=== PATIENT | male | born 1960 | race Caucasian/White ===

== ENCOUNTER 2024-12-30 17:42 | Emergency (ER) | payer MEDICAID, SELFPAY ==
[2024-12-30 18:32] VITALS: BP 173/104; PULSE 95; RESP 18; TEMP 36.9; O2SAT 94; BMI 36.1
--- NOTE | 2024-12-30 18:41 | XR_ITS ---
Examination: Tibia-Fibula, right , 2 views Technique: Tibia-fibula AP lateral 2 views Date and time of exam: December 30, 2024, 1920 hrs. Indications: Redness swelling and pain involving the lower leg beginning 2 weeks ago. Findings: Edema surrounding the lower leg No fracture Possible periosteal new bone involving the mid anterior tibia on the lateral view Impression: Possible early osteomyelitis mid anterior tibial shaft Recommend MRI right lower leg without contrast follow-up
--- NOTE | 2024-12-30 18:41 | PD.EDRME ---
Rapid Medical Screening Exam RME Arrival date/time: 12/30/24 17:42 64M with history of DM presents to ED with non-healing ulcer on RLE for 1 week. Chief Complaint: Wound/Laceration Vital signs: Vital Signs Temperature 98.4 F 12/30/24 18:32 Pulse Rate 95 12/30/24 18:32 Respiratory Rate 18 12/30/24 18:32 Blood Pressure 173/104 H 12/30/24 18:32 Pulse Oximetry (%) 94 L 12/30/24 18:32 Oxygen Delivery Method Room Air 12/30/24 18:32
[2024-12-30 19:09] LABS: Sed Rate (ESR) 22 mm/hr (0-20)
[2024-12-30 19:11] LABS: Basophils # (Auto) 0.1 Thou/mm3 (0.0-0.2); Basophils % (Auto) 1 % (0-2.5); Eosinophils # (Auto) 0.3 Thou/mm3 (0.0-0.5); Eosinophils % (Auto) 2 % (0-10); Hematocrit 44.5 % (41.0-53.0); Hemoglobin 15.0 g/dL (13.5-16.0); Immature Granulocytes Auto 0.06 Thou/mm3 (0.00-0.00); Lymphocytes # (Auto) 1.1 Thou/mm3 (1.0-4.8); Lymphocytes % (Auto) 7 % (10-50); Mean Corpuscular HGB Conc 33.7 g/dl (31.0-37.0); Mean Corpuscular Hemoglobin 30.5 pg (25.0-35.0); Mean Corpuscular Volume 90 fL (80-100); Monocytes # (Auto) 0.9 Thou/mm3 (0.0-0.8); Monocytes % (Auto) 6 % (0-12); Neutrophils # (Auto) 12.4 Thou/mm3 (1.8-7.7); Neutrophils % (Auto) 84 % (37-80); Nucleated Red Blood Cell # 0.00 Thou/mm3 (0.00-0.00); Nucleated Red Blood Cell % 0 /100 WBC (0); Platelet Count 316 Thou/mm3 (140-440); RDW Standard Deviation 41.6 fL (35.1-43.9); Red Blood Count 4.92 Miln/mm3 (4.50-5.90); White Blood Count 14.9 Thou/mm3 (3.8-10.6)
[2024-12-30 19:24] LABS: Alanine Aminotransferase 31 U/L (10-49); Albumin, Serum 4.3 gm/dL (3.4-4.8); Albumin/Globulin Ratio 1.4 (1.2-2.2); Alkaline Phosphatase 94 U/L (46-116); Anion Gap 8 (7-16); Aspartate Amino Transferase 20 U/L (0-34); BUN/Creatinine Ratio 14 Ratio (12-20); Bilirubin,Total 1.1 mg/dL (0.3-1.2); Blood Urea Nitrogen 11 mg/dL (9-23); C-Reactive Protein 3.7 mg/dL (0.0-0.9); Calcium 10.2 mg/dL (8.3-10.6); Calcium (Corrected) 10.2 mg/dL (8.5-10.1); Carbon Dioxide 29.5 mMol/L (20.0-31.0); Chloride 103 mMol/L (98-107); Creatinine (Component) 0.8 mg/dL (0.6-1.3); Estimated Creatinine Clearance 136.1 mL/min (>60); Globulin 3.0 gm/dL (2.3-3.5); Glucose 225 mg/dL (74-106); Osmolality,Calculated 285 (275-295); Potassium 5.3 mMol/L (3.4-5.1); Sodium 140 mMol/L (136-145); Total Protein 7.3 gm/dL (5.7-8.2); eGFR > 60 See Note
--- NOTE | 2024-12-30 21:38 | PC.NURSE ---
2134 called no answer
--- NOTE | 2024-12-30 22:18 | PD.EDWOUND ---
ED Wound/Laceration-RME/HPI General Chief Complaint: Wound/Laceration Stated Complaint: Right leg wound X 7 days Time Seen by Provider: 12/30/24 19:45 Arrival date/time: 12/30/24 17:42 RME / HPI RME / HPI narrative: 64M with history of DM presents to ED with non-healing ulcer on RLE for 1 week. Patient told me that about 8 days ago he accidentally hit his right lower leg on a hard object resulting in the abrasions. Since then has been having nonhealing wound. Associated with swelling to the leg. And discomfort. Severity moderate. Denies any fever. Patient is ambulatory. Was seen by PCP and was started on doxycycline and Keflex which according to the patient is not really helping. Dressing was applied in the clinic today. He is pending referral to military personnel specialist MD which the patient is going to see next week. Related Data Home Medications ?Medication ?Instructions ?Recorded ?Confirmed metformin 1,000 mg tablet 1,000 mg PO BID #0 tabs 03/08/17 03/30/23 (Glucophage) empagliflozin 10 mg tablet 10 mg PO QDAY 03/30/23 03/30/23 (Jardiance) sitagliptin phosphate 100 mg 100 mg PO DAILY 03/30/23 03/30/23 tablet (Januvia) Previous Rx's ?Medication ?Instructions ?Recorded ipratropium 20 mcg-albuterol 100 1 puff inhalation QID PRN 03/31/23 mcg/actuation mist for inhalation shortness of breath or wheezing #4 grams amoxicillin 875 mg-potassium 1 tab PO BID #20 tabs 12/30/24 clavulanate 125 mg tablet furosemide 20 mg tablet (Lasix) 20 mg PO QAM #7 tabs 12/30/24 furosemide 40 mg tablet (Lasix) 40 mg PO QAM #7 tabs 12/30/24 Allergies Allergy/AdvReac Type Severity Reaction Status Date / Time No Known Allergies Allergy Verified 12/30/24 17:46 Review of Systems Review of Systems Narrative Review of Systems: Review of system reviewed and within normal limits except mentioned in HPI ED Exam Narrative Physical exam: VITAL SIGNS: Reviewed. GENERAL APPEARANCE: Alert and interactive, follows commands, no acute distress, HEAD AND FACE: Non-traumatic. ENT: PERRL, pink conjunctivitis, eyelid no trauma, Mucous membrane moist. NECK: Supple, nontender, no nuchal rigidity. CHEST: No tenderness, no crepitus, no paradoxical movement, no retractions. LUNGS: Clear, well ventilated, symmetric, no rales, no wheezing, no ronchi, no stridor, good breath sounds bilaterally. HEART: Regular rate, regular rhythm, no murmur, no gallops. ABDOMEN: Soft, positive bowel sounds, nondistended, no guarding, nontender, no rebound, no masses, RECTAL: Deferred. GENITAL: Deferred. NEUROLOGICAL: Gross motor function intact sensory function intact, Appropriate for age. MUSCULOSKELETAL: low back nontender, full range of motion. EXTREMITIES: +2 edema right lower extremity with excoriation, + small open wound noted. With erythema., Nontender, full range of motion. Distal neurovascular status intact., Capillary fill less than 2 seconds. SKIN: Color pink, dry, no rash, no lacerations, no abrasions, no contusions. LYMPHATICS: Deferred. Course Quality Measures none Orders Category Date Time Status XR tibia fibula RT 2V Stat Exams 12/30/24 18:41 Completed CBC Stat Lab 12/30/24 18:52 Completed CMP [Comprehensive Metabolic Panel] Stat Lab 12/30/24 18:52 Completed CRP [C-Reactive Protein] Stat Lab 12/30/24 18:52 Completed ESR [Sed Rate (ESR)] Stat Lab 12/30/24 18:52 Completed Amoxicillin/Pot Clav 875 [Augmentin 875] Med 12/30/24 21:55 Discontinued 1 tab PO X1 ONE Furosemide [Lasix] Med 12/30/24 22:32 Once 20 mg PO X1 ONE Vital Signs Vital signs: Vital Signs Temperature 98.4 F 12/30/24 18:32 Pulse Rate 95 12/30/24 18:32 Respiratory Rate 18 12/30/24 18:32 Blood Pressure 173/104 H 12/30/24 18:32 Pulse Oximetry (%) 94 L 12/30/24 18:32 Oxygen Delivery Method Room Air 12/30/24 18:32 Wound / Laceration MDM Narrative MDM Narrative:: 64M with history of DM presents to ED with non-healing ulcer on RLE for 1 week. Patient told me that about 8 days ago he accidentally hit his right lower leg on a hard object resulting in the abrasions. Since then has been having nonhealing wound. Associated with swelling to the leg. And discomfort. Severity moderate. Denies any fever. Patient is ambulatory. Was seen by PCP and was started on doxycycline and Keflex which according to the patient is not really helping. Dressing was applied in the clinic today. He is pending referral to military personnel specialist MD which the patient is going to see next week. Patient CBC showed 14.9 leukocytosis. ESR 22, potassium 5.3 patient glucose was noted to be 225. X-ray of the tibia-fibula showed possible early osteomyelitis of the tibia. Results discussed with the patient patient was advised to follow-up with flow specialist next week for further management of the chronic venous stasis ulcer of the leg. Patient agrees with the plan. Dressing was changed. None Patient data External records reviewed:: None Clinical information provided by:: patient Social determinants that could affect healthcare access:: none Patient has the following chronic illnesses:: Diabetes mellitus How is presenting disease/condition affected by chronic disease/condition?: exacerbated by Evaluation data The following diagnostics were reviewed and interpreted by me:: lab results and radiology exam(s) Lab and/or radiology exams considered but not ordered:: None Interpretation Summary: See results MDM Medications / Prescriptions Medications or Prescriptions considered but not ordered:: None Medication administrations:: Medication Administration History Discontinued Medications Amoxicillin/Clavulanate Potassium (Amoxicillin/Pot Clav 875 Tablet) 1 tab PO X1 ONE Stop: 12/30/24 21:56 Augmentin and Lasix Consultations Consultation(s) initiated? (list below): No Diagnosis Wound Differential Diagnosis: avulsion of skin and other (Venous stasis ulcer, chronic ulcer leg, osteomyelitis tibia) Most likely diagnosis given after review of the tests above:: Chronic leg ulcer, venous stasis ulcer, Admission Indicated Admission indicated?: not indicated Explain why admission is indicated or not indicated:: Stable Admission Request Was there a request for admission?: No Disposition Plan Disposition Plan: Discharge Discharge Attestation Discharge Attestation: The patient was given an opportunity to ask questions and understood the discharge instructions. Discharge instructions specifically effects, indications for sooner follow up or return to the emergency department, and the expected course of current diagnosis. Patient condition: Stable Discharge Plan Plan Patient Disposition: HOME (Self Care) Discharge Disposition comment: Stable Prescriptions/Referrals Prescriptions/Med Rec: New amoxicillin-pot clavulanate 875-125 mg tablet 1 tab PO BID Qty: 20 0RF furosemide [Lasix] 40 mg tablet 40 mg PO QAM Qty: 7 0RF furosemide [Lasix] 20 mg tablet 20 mg PO QAM Qty: 7 0RF No Action metformin [Glucophage] 1,000 MG tablet 1,000 mg PO BID Qty: 0 Januvia 100 mg tablet 100 mg PO DAILY Jardiance 10 mg Tablet 10 mg PO QDAY ipratropium-albuterol 20-100 mcg/actuation mist 1 puff inhalation QID PRN (Reason: shortness of breath or wheezing) Qty: 4 0RF Rx Instructions: space evenly during waking hours Referrals: No Primary/Family,Physician [Primary Care Provider] - In 1 week Problem List Clinical Impression: Chronic stasis dermatitis, Chronic wound of extremity Patient/Caregiver Discharge Instructions Discharge Activity: activity as tolerated Education Materials: ED Venous Leg Ulcer Additional Instructions: Thank you for the opportunity for serving you today. You are stable for discharged . You are advised to: Follow-up with your PCP in 1 to 2 days Return to ED for worsening of symptoms worsening wound, fever, worsening swelling Increase oral fluids Take medication as prescribed Stop taking your Keflex. Continue taking your doxycycline Elevate your leg as needed Follow-up with your wound care referral for wound care MD specialist X-ray of your leg showed possible early osteomyelitis of the anterior tibial shaft. Print Language: Slovenian Stand Alone Forms: [facility] Award Info., Patient Portal Info Letter PA/DESIGN ENGINEERING SPECIALIST Supervising Physician PA/DESIGN ENGINEERING SPECIALIST Supervising Physician: MD Patricia
[2024-12-30 23:16] VITALS: BP 170/103; PULSE 96
[2024-12-30] MEDS: AMOXICILLIN/POT CLAV 875 TABLET 1 TAB PO (23:16)
== END 2024-12-30 23:20 | disposition home or self-care (01) ==
PROVIDERS: Physician Assistant; Emergency Provider Emergency Medicine
DX: I87.2 Venous insufficiency (chronic) (peripheral) (principal); L97.819 Non-pressure chronic ulcer of other part of right lower leg with unspecified severity; S81.811D Laceration without foreign body, right lower leg, subsequent encounter; W22.8XXD Striking against or struck by other objects, subsequent encounter
CPT/HCPCS: 36415; 73590; 80053; 85025; 85652; 86140; 99284; A9270

== ENCOUNTER 2025-01-05 13:19 | Emergency (ER) | payer MEDICAID, SELFPAY ==
--- NOTE | 2025-01-05 | XR_ITS ---
Examination: MRI right lower leg, without contrast Date and time of exam: January 05, 2025, 1539 hours INDICATIONS: Redness swelling discoloration lower leg beginning December 2024 Technique: Multiple axial sagittal and coronal images of the right lower leg have been obtained with the Siemens high-resolution 1.5 [place] MRI scanner. Images obtained include T2-weighted fat-suppressed sagittal sections, TR 3500, TE 46, T2 weighted coronal fat suppressed images, TR 3050, TE 84, T2-weighted transverse fat suppressed images, TR 3260, TE 63, proton density transverse images, TR 4720 TE 46, and T1 weighted coronal images, TR 560, TE 13. Findings: Continual patient motion severely degrades scan image quality Diffuse edema in the subcutaneous fatty tissue No cortical bone obstruction involving the tibia or fibula No soft tissue abscess There is increased signal in the extensor digitorum longus muscle which may represent hemorrhage IMPRESSION: Suspicious for hemorrhage in the extensor digitorum longus muscle, consider shorter CT scan tibia-fibula post contrast follow-up as patient motion severely degrades scan image quality
[2025-01-05 13:32] VITALS: BP 154/81; PULSE 87; RESP 20; TEMP 36.9; O2SAT 98
--- NOTE | 2025-01-05 13:44 | PD.EDRME ---
Rapid Medical Screening Exam RME Arrival date/time: 01/05/25 13:19 64-year-old male presents to the emergency room today for concerns for possible infection/osteomyelitis to right lower extremity Chief Complaint: General Adult/Misc Complain Time Seen by Provider: 01/05/25 13:27 Vital signs: Vital Signs Temperature 98.5 F 01/05/25 13:32 Pulse Rate 87 01/05/25 13:32 Respiratory Rate 20 01/05/25 13:32 Blood Pressure 154/81 H 01/05/25 13:32 Pulse Oximetry (%) 98 01/05/25 13:32 Oxygen Delivery Method Room Air 01/05/25 13:32
[2025-01-05 14:42] LABS: Basophils # (Auto) 0.1 Thou/mm3 (0.0-0.2); Basophils % (Auto) 1 % (0-2.5); Eosinophils # (Auto) 0.8 Thou/mm3 (0.0-0.5); Eosinophils % (Auto) 6 % (0-10); Hematocrit 43.7 % (41.0-53.0); Hemoglobin 14.8 g/dL (13.5-16.0); Immature Granulocytes Auto 0.04 Thou/mm3 (0.00-0.00); Lymphocytes # (Auto) 1.5 Thou/mm3 (1.0-4.8); Lymphocytes % (Auto) 12 % (10-50); Mean Corpuscular HGB Conc 33.9 g/dl (31.0-37.0); Mean Corpuscular Hemoglobin 30.3 pg (25.0-35.0); Mean Corpuscular Volume 90 fL (80-100); Monocytes # (Auto) 0.9 Thou/mm3 (0.0-0.8); Monocytes % (Auto) 7 % (0-12); Neutrophils # (Auto) 9.8 Thou/mm3 (1.8-7.7); Neutrophils % (Auto) 75 % (37-80); Nucleated Red Blood Cell # 0.00 Thou/mm3 (0.00-0.00); Nucleated Red Blood Cell % 0 /100 WBC (0); Platelet Count 311 Thou/mm3 (140-440); RDW Standard Deviation 41.0 fL (35.1-43.9); Red Blood Count 4.88 Miln/mm3 (4.50-5.90); White Blood Count 13.1 Thou/mm3 (3.8-10.6)
[2025-01-05 14:42] LABS: Lactate (Lactic Acid) 1.3 mMol/L (0.4-2.0)
[2025-01-05 15:10] LABS: Alanine Aminotransferase 28 U/L (10-49); Albumin, Serum 4.1 gm/dL (3.4-4.8); Albumin/Globulin Ratio 1.4 (1.2-2.2); Alkaline Phosphatase 97 U/L (46-116); Anion Gap 7 (7-16); Aspartate Amino Transferase 15 U/L (0-34); BUN/Creatinine Ratio 13 Ratio (12-20); Bilirubin,Total 0.8 mg/dL (0.3-1.2); Blood Urea Nitrogen 12 mg/dL (9-23); C-Reactive Protein 7.0 mg/dL (0.0-0.9); Calcium 9.3 mg/dL (8.3-10.6); Calcium (Corrected) 9.3 mg/dL (8.5-10.1); Carbon Dioxide 28.9 mMol/L (20.0-31.0); Chloride 101 mMol/L (98-107); Creatinine (Component) 0.9 mg/dL (0.6-1.3); Globulin 3.0 gm/dL (2.3-3.5); Glucose 263 mg/dL (74-106); Osmolality,Calculated 282 (275-295); Potassium 4.3 mMol/L (3.4-5.1); Procalcitonin 0.19 ng/ml (0.0-0.49); Sodium 137 mMol/L (136-145); Total Protein 7.1 gm/dL (5.7-8.2); eGFR > 60 See Note
[2025-01-05 15:12] LABS: Sed Rate (ESR) 40 mm/hr (0-20)
--- NOTE | 2025-01-05 18:06 | PD.EDADULT ---
ED General RME/HPI General Chief complaint: General Adult/Misc Complain Stated complaint: SENT BY MD FOR MRI ON R LEG Time Seen by Provider: 01/05/25 13:27 Arrival date/time: 01/05/25 13:19 RME / HPI RME / HPI narrative: 01/05/25 13:19 64-year-old with past medical history of hypertension, chronic lower extremity venous stasis, polysubstance abuse, insulin-independent type 2 diabetes mellitus who comes in for an evaluation of right lower extremity swelling. He reports that he has had this for a long time and he was told by his primary care doctor to come get evaluated in the emergency room. He says that he dresses his right lower extremity on his own and has had this for a long time. He says that if his leg was infected, he would not want to get any sort of amputation at this time. Denies any fever, chills or chest pain at this time. He does endorse some drainage at this time however no pain in his lower extremity. He says that he had his left eye removed after an injury while working. He has no other complaints at this time. Related Data Home Medications ?Medication ?Instructions ?Recorded ?Confirmed metformin 1,000 mg tablet 1,000 mg PO BID #0 tabs 03/08/17 03/30/23 (Glucophage) empagliflozin 10 mg tablet 10 mg PO QDAY 03/30/23 03/30/23 (Jardiance) sitagliptin phosphate 100 mg 100 mg PO DAILY 03/30/23 03/30/23 tablet (Januvia) Previous Rx's ?Medication ?Instructions ?Recorded ipratropium 20 mcg-albuterol 100 1 puff inhalation QID PRN 03/31/23 mcg/actuation mist for inhalation shortness of breath or wheezing #4 grams amoxicillin 875 mg-potassium 1 tab PO BID #20 tabs 12/30/24 clavulanate 125 mg tablet furosemide 20 mg tablet (Lasix) 20 mg PO QAM #7 tabs 12/30/24 furosemide 40 mg tablet (Lasix) 40 mg PO QAM #7 tabs 12/30/24 Allergies Allergy/AdvReac Type Severity Reaction Status Date / Time No Known Allergies Allergy Verified 01/05/25 13:21 Review of Systems Review of Systems Narrative Review of Systems: Constitutional: No fever, chills, fatigue, weakness, weight loss HEENT: No eye pain, vision loss, ear pain, hearing loss, dysphagia, Cardiovascular: No chest pain, palpitations, edema, pain with walking Respiratory: No cough, shortness of breath, wheezing GI: No NVD, abdominal pain, constipation, blood in stool, loss of appetite, heartburn Extremities: No presence of pitting edema, endorses drainage of RLE MSK: No back pain, joint pain, joint swelling Neuro: No dizziness, numbness, weakness, headaches, seizures, tremors Psych: No anxiety, depression ED Exam Narrative Physical exam: General: AAOx3, NAD, plesant male HEENT: Moist mucous membranes, conjunctiva clear, EOMI, missing L eye Cardiovascular: S1, S2, radial pulses +2 bilat, RRR Pulmonary: CTAB bilat no cough, no wheezing GI: No tenderness to light or deep palpitation, no guarding, rigidity, rebound tenderness or distension Extremities: Right lower extremity shows diffuse edema, erythema, active drainage, however no visual open ulcer visualized, subcutaneous edema present, not tender to touch, not warm to touch, left lower extremity exhibits venous stasis, difficulty appreciating lower extremity peripheral pulses bilat Neuro: AAOx3, no focal motor or sensory deficits in the UE or LE bilat Psych: Good judgement, thought and behavior Course Quality Measures none Orders Category Date Time Status CT Screening NOW Care 01/05/25 18:25 Active Insert IV NOW Care 01/05/25 18:26 Active MRI Screening NOW Care 01/05/25 13:43 Active Wound Care [Wound Care] PRN Care 01/05/25 18:[address] LE RT wo/w con Stat Exams 01/05/25 18:24 Ordered MR lower leg RT wo con Stat Exams 01/05/25 Completed Blood Culture (Lab) Stat Lab 01/05/25 14:30 Received CBC Stat Lab 01/05/25 14:25 Completed CRP [C-Reactive Protein] Stat Lab 01/05/25 14:25 Completed Comprehensive Metabolic Panel Stat Lab 01/05/25 14:25 Completed ESR [Sed Rate (ESR)] Stat Lab 01/05/25 14:25 Completed Lactate (Lactic Acid) Stat Lab 01/05/25 14:30 Completed MRSA Nasal Screen Stat Lab 01/05/25 20:43 Ordered Procalcitonin Stat Lab 01/05/25 14:25 Completed Piper/Tazo 3.375 gm Premix [Zosyn] Med 01/05/25 20:42 Discontinued 3.375 gm in 50 ml IV X1 Vancomycin Pharmacy to Dose Med 01/05/25 20:45 Pending 1 each IV QDAY Vital Signs Vital signs: Vital Signs Temperature 98.5 F 01/05/25 13:32 Pulse Rate 87 01/05/25 13:32 Respiratory Rate 20 01/05/25 13:32 Blood Pressure 154/81 H 01/05/25 13:32 Pulse Oximetry (%) 98 01/05/25 13:32 Oxygen Delivery Method Room Air 01/05/25 13:32 Discharge Plan Plan Patient Disposition: Elopement Prescriptions/Referrals Prescriptions/Med Rec: No Action metformin [Glucophage] 1,000 MG tablet 1,000 mg PO BID Qty: 0 Januvia 100 mg tablet 100 mg PO DAILY Jardiance 10 mg Tablet 10 mg PO QDAY ipratropium-albuterol 20-100 mcg/actuation mist 1 puff inhalation QID PRN (Reason: shortness of breath or wheezing) Qty: 4 0RF Rx Instructions: space evenly during waking hours amoxicillin-pot clavulanate 875-125 mg tablet 1 tab PO BID Qty: 20 0RF furosemide [Lasix] 40 mg tablet 40 mg PO QAM Qty: 7 0RF furosemide [Lasix] 20 mg tablet 20 mg PO QAM Qty: 7 0RF Referrals: Truong Guajardo MD [Primary Care Provider, Family Practice] - In 1 week Problem List Clinical Impression: At risk for elopement from emergency department Patient/Caregiver Discharge Instructions Print Language: Sami Attestation Attestation I, Dr. Quinonez, have reviewed the history, exam, and assessment of the patient. I have evaluated the patient independently and agree with the plan of care documented by the resident Dr. Dang. All diagnostic studies were reviewed and discussed. I confirm the diagnosis as documented by the resident. I was present during the Medical Decision Making for this patient. The patient?s plan of care was created between myself and the resident and consistent with our discussion of the patient?s case. MDM Narrative MDM hospital course (for use when minimal MDM required): 183: Due to MRI that was done for patient earlier was limited in images, will order CT RLE postcontrast for further evaluation of edema and possible hemorrhage, will insert IV. Labs reviewed, no lactic acidosis or Pro-Joe elevation, however ESR 40, CRP 7. Medication Administration(s) Medication Administration History Pharmacy Consult (Vancomycin Pharmacy To Dose 1 Each Each) 1 each IV QDAY RALPH Stop: 02/04/25 20:44 Discontinued Medications Piperacillin/Tazobactam/Dextrose (Zosyn) 3.375 gm in 50 mls @ 100 mls/hr IV X1 ONE; Protocol Stop: 01/05/25 21:11
--- NOTE | 2025-01-05 21:57 | PC.NURSE ---
Pt no answer @ 2055, 2114, 2155. Attempted to also call pt's listed cell number with no answer.
== END 2025-01-05 22:50 | disposition left against medical advice (07) ==
PROVIDERS: Nurse Practitioner Primary Care; Emergency Provider Emergency Medicine; PCP Family Medicine
DX: R22.41 Localized swelling, mass and lump, right lower limb (principal); I10 Essential (primary) hypertension; E11.9 Type 2 diabetes mellitus without complications; Z79.4 Long term (current) use of insulin; I87.8 Other specified disorders of veins; Z53.29 Procedure and treatment not carried out because of patient's decision for other reasons
CPT/HCPCS: 36415; 73718; 80053; 83605; 84145; 85025; 85652; 86140; 87040; 87081; 99284

== ENCOUNTER 2025-01-06 06:29 | Emergency (ER) | payer MEDICAID, SELFPAY ==
[2025-01-06 06:30] VITALS: BMI 37.2
[2025-01-06 06:34] VITALS: BP 166/94; PULSE 91; RESP 20; TEMP 37.2; O2SAT 95
--- NOTE | 2025-01-06 06:42 | XR_ITS ---
Examination: CT right lower leg with intravenous contrast CT right lower leg without intravenous contrast 2-D reconstructions Date and time of exam:January 06, 2025, 0842 hours INDICATIONS: Nonhealing ulcer and drainage tenderness in the right lower leg today CTDI:vol (mGy) 15.12 DLP: (mGycm) 615 Technique: Multiple axial sections of the right lower leg have been obtained. Examination performed pre and post intravenous ministration 60 cc [id number] 2-D sagittal coronal images obtained. Low dose protocols were performed. One or more of the following dose reduction techniques were used; automated exposure control, adjustment of the mA and/or KV according to patient size, use of iterative reconstruction technique. Findings: Moderate knee effusion Diffuse edema in the subcutaneous tissues surrounding the lower leg, most prominent anterior to the tibial shaft No discrete fluid-filled abscess No cortical bone destruction involving distal femur tibia or fibula IMPRESSION: Diffuse cellulitis/edema in the subcutaneous fatty tissue surrounding the lower leg No soft tissue abscess Negative for osteomyelitis
--- NOTE | 2025-01-06 06:49 | PD.EDRME ---
Rapid Medical Screening Exam E Arrival date/time: 01/06/25 06:29 64-year-old with past medical history of hypertension, chronic lower extremity venous stasis, polysubstance abuse, insulin-independent type 2 diabetes mellitus presents to the emergency room with a chief complaint of an ulcer, drainage, tenderness from his right lower leg. Patient was seen here yesterday but eloped. I have greeted and performed a focused initial assessment of this patient. A comprehensive ED assessment and evaluation of the patient, analysis of all test results, and completion of the medical decision making process will be conducted by additional ED providers. Chief Complaint: Extremity Injury, Lower Time Seen by Provider: 01/06/25 06:40 Vital signs: Vital Signs Temperature 98.9 F 01/06/25 06:34 Pulse Rate 91 01/06/25 06:34 Respiratory Rate 20 01/06/25 06:34 Blood Pressure 166/94 H 01/06/25 06:34 Pulse Oximetry (%) 95 01/06/25 06:34 Oxygen Delivery Method Room Air 01/06/25 06:34 Vital signs reviewed by provider: Yes
[2025-01-06 07:26] LABS: Lactate (Lactic Acid) 1.6 mMol/L (0.4-2.0)
[2025-01-06 07:37] LABS: Basophils # (Auto) 0.1 Thou/mm3 (0.0-0.2); Basophils % (Auto) 1 % (0-2.5); Eosinophils # (Auto) 0.4 Thou/mm3 (0.0-0.5); Eosinophils % (Auto) 4 % (0-10); Hematocrit 44.7 % (41.0-53.0); Hemoglobin 15.1 g/dL (13.5-16.0); Immature Granulocytes Auto 0.05 Thou/mm3 (0.00-0.00); Lymphocytes # (Auto) 1.2 Thou/mm3 (1.0-4.8); Lymphocytes % (Auto) 12 % (10-50); Mean Corpuscular HGB Conc 33.8 g/dl (31.0-37.0); Mean Corpuscular Hemoglobin 30.4 pg (25.0-35.0); Mean Corpuscular Volume 90 fL (80-100); Monocytes # (Auto) 0.7 Thou/mm3 (0.0-0.8); Monocytes % (Auto) 7 % (0-12); Neutrophils # (Auto) 7.9 Thou/mm3 (1.8-7.7); Neutrophils % (Auto) 76 % (37-80); Nucleated Red Blood Cell # 0.00 Thou/mm3 (0.00-0.00); Nucleated Red Blood Cell % 0 /100 WBC (0); Platelet Count 310 Thou/mm3 (140-440); RDW Standard Deviation 41.4 fL (35.1-43.9); Red Blood Count 4.96 Miln/mm3 (4.50-5.90); White Blood Count 10.3 Thou/mm3 (3.8-10.6)
--- NOTE | 2025-01-06 07:49 | EDNOTE_ITS ---
ED General RME/HPI General Chief complaint: Extremity Injury, Lower Stated complaint: RIGHT LEG ULCER Time Seen by Provider: 01/06/25 06:40 Arrival date/time: 01/06/25 06:29 RME / HPI RME / HPI narrative: 01/06/25 06:29 64-year-old with past medical history of hypertension, chronic lower extremity venous stasis, polysubstance abuse, insulin-independent type 2 diabetes mellitus presents to the emergency room with a chief complaint of an ulcer, drainage, tenderness from his right lower leg. Patient was seen here yesterday but eloped. I have greeted and performed a focused initial assessment of this patient. A comprehensive ED assessment and evaluation of the patient, analysis of all test results, and completion of the medical decision making process will be conducted by additional ED providers. ED EVALUATION 0735h: 64-year-old male here for evaluation of right lower extremity swelling. States that he was seen here in the past couple weeks for the swelling, given prescription for doxycycline which he finished a 10-day course of a few days ago. Also is currently on Augmentin for same. Has had weeping to the right lower extremity though this has been decreasing the last few days. The swelling is noted to improve when he elevates his leg. Notes that he is afraid of losing the leg due to a possible evidence of infection noted on an x-ray recently. Had been here yesterday for an MRI for further evaluation though imaging was somewhat limited due to patient movement. A CT postcontrast of the leg have been recommended which patient did not end up staying for. He is back this morning to finish the workup. Denies any fever or other acute symptoms at this time. Notes that he has history of diabetes, hypertension, COPD for which he is on a number of medications that he has not been taking the past few months as he has not been able to go see his doctor for refills. Related Data Previous Rx's ?Medication ?Instructions ?Recorded ipratropium 20 mcg-albuterol 100 1 puff inhalation QID PRN 03/31/23 mcg/actuation mist for inhalation shortness of breath or wheezing #4 grams amoxicillin 875 mg-potassium 1 tab PO BID #20 tabs clavulanate 125 mg tablet empagliflozin 10 mg tablet 10 mg PO QDAY #30 tabs 10/0 06/28 (Jardiance) furosemide 20 mg tablet (Lasix) 20 mg PO QAM #30 tabs 01/06/25 lisinopril 20 mg tablet 20 mg PO QDAY #30 tabs 01/06 metformin 1,000 mg tablet 1,000 mg PO BID #60 tabs 06/28 sitagliptin phosphate 100 mg 100 mg PO DAILY #30 tabs 01/06/25 tablet (Januvia) Allergies Allergy/AdvReac Type Severity Reaction Status Date / Time No Known Allergies Allergy Verified 01/06/25 06:31 Review of Systems Review of Systems Systems Reviewed: All systems reviewed, normal except as documented Past Medical History Past Medical History Comments PMH COMMENT: COPD, diabetes, hypertension, chronic peripheral vascular disease lower extremities ED Exam Narrative Physical exam: Constitutional: Awake, alert, nontoxic, obese, does not appear in acute distress at this time. HEENT: Normocephalic, atraumatic, extraocular movements intact. Neck: Supple CV: Regular rate and rhythm, no murmurs/rubs/gallops Lungs: Mild generalized expiratory wheeze. No respiratory distress noted. Abd: Soft, NT, ND, large abdominal pannus noted. Extremities: Chronic PVD changes noted to skin of bilateral lower extremities. The right lower extremity is noted to have mildly increased heat to palpation, no pain to superficial palpation of right lower extremity. Dusky erythema present from several inches below the right knee down to her foot. Decreased pulse noted to right lower extremity. Some superficial skin breakdown noted but otherwise no ulcerations noted to right lower extremity calf or foot. Neuro: AAOx3, no acute neuro deficit noted. Skin: Abnormalities as above. Course Course Course Narrative: 0740h: 64-year-old male coming in for reevaluation of right lower extremity swelling and weeping that per patient has actually been improving over the last few days. Repeat labs and a CT that was pending yesterday was reordered today. Possible discharge home pending workup results. Also refilled patient prescriptions that he has not had and will give dose of home meds here. 1210h: Patient is feeling well. Discussed results of CT lower extremity with patient as well as labs which are noted to have some improvement compared with yesterday. Overall it appears that patient has had some improvement over the past few days and symptoms while on current antibiotics. Would continue course of the antibiotics. No evidence of osteomyelitis at this time. No indication for further emergent workup inpatient. Have advised on taking his home medications as prescribed and following up with his PCP closely outpatient. Given refills of medications that he is missing. Also discussed lifestyle modifications for better health. Stable for discharge. Quality Measures none Orders Category Date Time Status CT Screening NOW Care 01/06/25 06:[address] Screening X1 Care 01/06/25 06:42 Active Insert IV NOW Care 01/06/25 06:[address] lower leg RT wo/w con Stat Exams 01/06/25 06:42 Completed Blood Culture (Lab) Stat Lab 01/06/25 07:06 Received CBC [CBC] Stat Lab 01/06/25 07:12 Completed CMP [Comprehensive Metabolic Panel] Stat Lab 01/06/25 07:12 Completed CRP [C-Reactive Protein] Stat Lab 01/06/25 07:12 Completed ESR [Sed Rate (ESR)] Stat Lab 01/06/25 07:12 Completed Lactate (Lactic Acid) Stat Lab 01/06/25 07:12 Completed Procalcitonin Stat Lab 01/06/25 07:12 Completed Furosemide [Lasix] Med 01/06/25 07:42 Discontinued 20 mg PO X1 ONE empagliflozin [Jardiance] Med 01/06/25 07:42 Discontinued 10 mg PO NOW ONE metFORMIN [Glucophage] Med 01/06/25 07:42 Discontinued 1,000 mg PO X1 ONE sitaGLIPtin PHOSPHATE [Januvia] Med 01/06/25 07:42 Discontinued 100 mg PO X1 ONE Referral [employer] NOW 01/06/25 08:35 Active Vital Signs Vital signs: Vital Signs Temperature 98.9 F 01/06/25 06:34 Pulse Rate 91 01/06/25 06:34 Respiratory Rate 20 01/06/25 06:34 Blood Pressure 166/94 H 01/06/25 06:34 Pulse Oximetry (%) 95 01/06/25 06:34 Oxygen Delivery Method Room Air 01/06/25 06:34 Critical Care Time Critical Care Time Critical Care Time: No Discharge Plan Plan Patient Disposition: HOME (Self Care) Patient condition on transfer: Stable Prescriptions/Referrals Prescriptions/Med Rec: New metformin 1,000 mg tablet 1,000 mg PO BID Qty: 60 0RF lisinopril 20 mg tablet 20 mg PO QDAY Qty: 30 0RF Continued furosemide [Lasix] 20 mg tablet 20 mg PO QAM Qty: 30 0RF Januvia 100 mg tablet 100 mg PO DAILY Qty: 30 0RF Jardiance 10 mg Tablet 10 mg PO QDAY Qty: 30 0RF Discontinued metformin [Glucophage] 1,000 MG tablet 1,000 mg PO BID Qty: 0 furosemide [Lasix] 40 mg tablet 40 mg PO QAM Qty: 7 0RF No Action ipratropium-albuterol 20-100 mcg/actuation mist 1 puff inhalation QID PRN (Reason: shortness of breath or wheezing) Qty: 4 0RF Rx Instructions: space evenly during waking hours amoxicillin-pot clavulanate 875-125 mg tablet 1 tab PO BID Qty: 20 0RF Referrals: Angelica Casanova MD [Primary Care Provider] - In 1 week Problem List Clinical Impression: Cellulitis, History of diabetes mellitus, Peripheral vascular disease Patient/Caregiver Discharge Instructions Education Materials: Low-Salt Choices, Discharge Instructions for Cellulitis, Diabetes PAD, Eating Heart-Healthy Foods Additional Instructions: Finish your course of oral antibiotics. Take your medications for diabetes and high blood pressure as prescribed. Follow-up closely with your primary doctor. Change your wound dressings daily, cleaning the wound well at each dressing change. Some general health principles that can help you are the [employer] principles: Nutrition (eat a plant-based diet, avoiding meats in general, avoiding highly processed foods) Exercise (Daily exercise/walks as tolerated) Water (Drink adequate fresh water to maintain hydration, concentrating on water rather than on soda, coffee, tea, juice, etc for hydration) [place] (Spend time - 15-20 minutes or so with skin exposed in the [place] and late evening sun for Vitamin D health benefits) [place] (Avoid alcohol, illicit drugs, caffeinated beverages, smoking, etc) Air (Deep breathing exercises in the early mornings in fresh air) Rest (Adequate rest at night, going to bed a few hours before midnight and avoiding all screens/television/loud music in the time right before going to bed, also avoiding heavy meals just prior to going to bed) Trust in God (Spend time daily in Bible study and prayer - health benefits in contemplation of God's true character) Additional resources that can benefit: www.[employer], look under resources and seminars. Nutrition website: www.[employer].org - look under 'food'. Print Language: Upper Sorbian Stand Alone Forms: [employer] Award Info., Patient Portal Info Letter [facility] Medical Records reviewed [facility] Meds/Rx considered, not ordered None Labs/Rad/Tests considered, not ordered None Chronic Illness/Social Conditions which may negatively complicate care or outcome(s)-explain: None or not applicable EKG EKG not done Labs Labs: interpreted by me Imaging Imaging Interpretation(s): Ordering Physician: Steven Snowden Date of Service: 01/06/25 Procedure(s): CT lower leg RT wo/w con Accession Number(s): [id number] cc: Steven Snowden; Je Mayorga MD; Angelica Casanova MD~ Examination: CT right lower leg with intravenous contrast CT right lower leg without intravenous contrast 2-D reconstructions Date and time of exam:January 06, 2025, 0842 hours INDICATIONS: Nonhealing ulcer and drainage tenderness in the right lower leg today CTDI:vol (mGy) 15.12 DLP: (mGycm) 615 Technique: Multiple axial sections of the right lower leg have been obtained. Examination performed pre and post intravenous ministration 60 cc [id number] 2-D sagittal coronal images obtained. Low dose protocols were performed. One or more of the following dose reduction techniques were used; automated exposure control, adjustment of the mA and/or KV according to patient size, use of iterative reconstruction technique. Findings: Moderate knee effusion Diffuse edema in the subcutaneous tissues surrounding the lower leg, most prominent anterior to the tibial shaft No discrete fluid-filled abscess No cortical bone destruction involving distal femur tibia or fibula IMPRESSION: Diffuse cellulitis/edema in the subcutaneous fatty tissue surrounding the lower leg No soft tissue abscess Negative for osteomyelitis Dictated By: Je Mayorga MD Signed By: <Electronically signed by Je Mayorga MD in [place]> 01/06/25 0946 Medication Administration(s) Medication Administration History Discontinued Medications Furosemide (Furosemide 20 Mg Tablet) 20 mg PO X1 ONE Stop: 01/06/25 07:43 Last Admin: 01/06/25 09:03 Dose: 20 mg Documented By: CS Metformin HCl (Metformin 500 Mg Tablet) 1,000 mg PO X1 ONE Stop: 01/06/25 07:43 Last Admin: 01/06/25 09:04 Dose: Not Given Documented By: CS Non-Admin Reason: Contraindicated Comments: Pt had CT with contrast this AM Non-Formulary Medication (Empagliflozin [Jardiance]) 10 mg PO NOW ONE Stop: 01/06/25 07:43 Last Admin: 01/06/25 10:16 Dose: Not Given Documented By: CS Non-Admin Reason: Medication Not Available Sitagliptin Phosphate (Sitagliptin Phosphate 50 Mg Tablet) 100 mg PO X1 ONE Stop: 01/06/25 07:43 Last Admin: 01/06/25 09:02 Dose: 100 mg Documented By: CS See above Diagnosis Diagnoses ruled out and/or further discussions: chronic peripheral vascular disease mild cellulitis hx of diabetes hx of hypertension
[2025-01-06 08:03] LABS: Alanine Aminotransferase 31 U/L (10-49); Albumin, Serum 4.2 gm/dL (3.4-4.8); Albumin/Globulin Ratio 1.4 (1.2-2.2); Alkaline Phosphatase 97 U/L (46-116); Anion Gap 6 (7-16); Aspartate Amino Transferase 18 U/L (0-34); BUN/Creatinine Ratio 16 Ratio (12-20); Bilirubin,Total 0.7 mg/dL (0.3-1.2); Blood Urea Nitrogen 14 mg/dL (9-23); C-Reactive Protein 5.4 mg/dL (0.0-0.9); Calcium 9.4 mg/dL (8.3-10.6); Calcium (Corrected) 9.4 mg/dL (8.5-10.1); Carbon Dioxide 29.7 mMol/L (20.0-31.0); Chloride 101 mMol/L (98-107); Creatinine (Component) 0.9 mg/dL (0.6-1.3); Estimated Creatinine Clearance 122.7 mL/min (>60); Globulin 3.1 gm/dL (2.3-3.5); Glucose 258 mg/dL (74-106); Osmolality,Calculated 283 (275-295); Potassium 4.0 mMol/L (3.4-5.1); Procalcitonin 0.19 ng/ml (0.0-0.49); Sodium 137 mMol/L (136-145); Total Protein 7.3 gm/dL (5.7-8.2); eGFR > 60 See Note
[2025-01-06 08:30] VITALS: BP 154/95; PULSE 88; RESP 18; TEMP 37.2; O2SAT 95
[2025-01-06 09:03] VITALS: BP 156/97; PULSE 79
[2025-01-06 10:36] LABS: Sed Rate (ESR) 45 mm/hr (0-20)
[2025-01-06 11:37] VITALS: BP 148/109; PULSE 96; RESP 16; TEMP 37.1; O2SAT 98
== END 2025-01-06 13:00 | disposition home or self-care (01) ==
PROVIDERS: Nurse Practitioner Family; Emergency Provider Family Medicine; PCP Family Medicine
DX: L97.919 Non-pressure chronic ulcer of unspecified part of right lower leg with unspecified severity (principal); L03.115 Cellulitis of right lower limb
CPT/HCPCS: 36415; 73702; 80053; 83605; 84145; 85025; 85652; 86140; 87040; 99284; A4649; Q9967; A9270

== ENCOUNTER → 2025-02-09 | Outpatient (CLI) | payer MEDICAID, SELFPAY | END | disposition home or self-care (01) | PROVIDERS: PCP Family Medicine; Referring Provider Family Medicine; Visit Provider Student in an Organized Health Care Education/Training Program | DX: I87.311 Chronic venous hypertension (idiopathic) with ulcer of right lower extremity (principal); E11.621 Type 2 diabetes mellitus with foot ulcer; L97.512 Non-pressure chronic ulcer of other part of right foot with fat layer exposed; L97.815 Non-pressure chronic ulcer of other part of right lower leg with muscle involvement without evidence of necrosis; L03.115 Cellulitis of right lower limb; F17.200 Nicotine dependence, unspecified, uncomplicated; J44.9 Chronic obstructive pulmonary disease, unspecified; K21.9 Gastro-esophageal reflux disease without esophagitis; I10 Essential (primary) hypertension; Z90.01 Acquired absence of eye; R60.0 Localized edema; M10.9 Gout, unspecified | CPT/HCPCS: 29581; 99213; A9270; G0463 ==

== ENCOUNTER → 2025-02-13 | Outpatient (CLI) | payer MEDICAID, SELFPAY | END | disposition home or self-care (01) | LOC: SWHD 15:05 | PROVIDERS: PCP Physician Assistant Medical; Referring Provider Physician Assistant Medical; Visit Provider Student in an Organized Health Care Education/Training Program | DX: I87.311 Chronic venous hypertension (idiopathic) with ulcer of right lower extremity (principal); E11.621 Type 2 diabetes mellitus with foot ulcer; L97.512 Non-pressure chronic ulcer of other part of right foot with fat layer exposed; L97.815 Non-pressure chronic ulcer of other part of right lower leg with muscle involvement without evidence of necrosis; L03.115 Cellulitis of right lower limb; F17.200 Nicotine dependence, unspecified, uncomplicated; J44.9 Chronic obstructive pulmonary disease, unspecified; K21.9 Gastro-esophageal reflux disease without esophagitis; I10 Essential (primary) hypertension; Z90.01 Acquired absence of eye; R60.0 Localized edema | CPT/HCPCS: 29581 ==

== ENCOUNTER → 2025-02-16 | Outpatient (CLI) | payer MEDICAID, SELFPAY | END | disposition home or self-care (01) | LOC: SWHD 14:49 | PROVIDERS: PCP Physician Assistant Medical; Referring Provider Physician Assistant Medical; Visit Provider Student in an Organized Health Care Education/Training Program | DX: I87.311 Chronic venous hypertension (idiopathic) with ulcer of right lower extremity (principal); E11.621 Type 2 diabetes mellitus with foot ulcer; L97.512 Non-pressure chronic ulcer of other part of right foot with fat layer exposed; L97.815 Non-pressure chronic ulcer of other part of right lower leg with muscle involvement without evidence of necrosis; L03.115 Cellulitis of right lower limb; F17.200 Nicotine dependence, unspecified, uncomplicated; J44.9 Chronic obstructive pulmonary disease, unspecified; K21.9 Gastro-esophageal reflux disease without esophagitis; I10 Essential (primary) hypertension; Z90.01 Acquired absence of eye; R60.0 Localized edema | CPT/HCPCS: 29581; A9270 ==

== ENCOUNTER → 2025-02-23 | Outpatient (CLI) | payer MEDICAID, SELFPAY | END | disposition home or self-care (01) | LOC: SWHD 14:25 | PROVIDERS: PCP Physician Assistant Medical; Referring Provider Physician Assistant Medical; Visit Provider Student in an Organized Health Care Education/Training Program | DX: I87.311 Chronic venous hypertension (idiopathic) with ulcer of right lower extremity (principal); E11.621 Type 2 diabetes mellitus with foot ulcer; L97.512 Non-pressure chronic ulcer of other part of right foot with fat layer exposed; L97.815 Non-pressure chronic ulcer of other part of right lower leg with muscle involvement without evidence of necrosis; L03.115 Cellulitis of right lower limb; F17.200 Nicotine dependence, unspecified, uncomplicated; J44.9 Chronic obstructive pulmonary disease, unspecified; K21.9 Gastro-esophageal reflux disease without esophagitis; I10 Essential (primary) hypertension; Z90.01 Acquired absence of eye; R60.0 Localized edema | CPT/HCPCS: 29581 ==